=== PATIENT | male | born 2000 | race Caucasian/White ===

== ENCOUNTER 2023-10-06 21:33 | Emergency (ER) | payer BC, SELFPAY ==
--- NOTE | ~2023-10-06 | XR_ITS ---
XR shoulder LT min 2V 10/06/2023 21:46 INDICATION: Left shoulder pain PROCEDURE: 4 views left shoulder COMPARISON: No prior studies for comparison. FINDINGS: Fracture, dislocation or subluxation is not identified. The soft tissues appear within norm al limits. No foreign bodies are identified. IMPRESSION: 1: NO ACUTE BONE OR JOINT ABNORMALITY IDENTIFIED. Reviewed, dictated and finalized at location A.
[2023-10-06 21:36] VITALS: BP 122/73; PULSE 93; RESP 15; TEMP 37.2; O2SAT 100
--- NOTE | 2023-10-06 22:41 | ED.GENADULT ---
HPI - General Adult General Chief complaint: Extremity Injury, Upper Stated complaint: dislocated L shoulder Time Seen by Provider: 10/06/23 22:21 History of Present Illness HPI narrative: This is a 22-year-old male presenting ED with left shoulder pain. He was playing basketball when he jumped and someone pulled on his arm. He then felt his arm, place was unable to move it. EMS was called while he was walking to the ambulance he felt his shoulder go back into place. This time his only complaint is some tightness in his lateral deltoid. No numbness tingling or weakness to his extremities Related Data Allergies Allergy/AdvReac Type Severity Reaction Status Date / Time No Known Allergies Allergy Verified 10/06/23 22:18 Exam Narrative: APPEARANCE: No apparent distress. Head: atraumatic. EYES: EOMI, NOSE: Atraumatic NECK: Trachea midline RESPIRATORY: No increased rate of breathing CARDIOVASCULAR: RRR, ABDOMINAL: Non-distended MUSCULOSKELETAl: or focal exam of the left upper extremity revealed some tenderness in the lateral deltoid. No numbness in the lateral deltoid region. Bench Scientist strength, thumb and pinky opposition and wrist extension intact. Cap refill less than 2 seconds and pulses intact. NEURO: Alert. Moving 4/4 extremities SKIN:: Warm, dry. Normal color PSYCHIATRIC: Normal affect Course Vital Signs Vital signs: Vital Signs Temperature 98.9 F 10/06/23 21:36 Pulse Rate 93 10/06/23 21:36 Respiratory Rate 15 10/06/23 21:36 Blood Pressure 122/73 10/06/23 21:36 Pulse Oximetry 100 10/06/23 21:36 Oxygen Delivery Room Air 10/06/23 21:36 Temperature 98.9 F 10/06/23 21:36 Pulse Rate 93 10/06/23 21:36 Respiratory Rate 15 10/06/23 21:36 Blood Pressure 122/73 10/06/23 21:36 Pulse Oximetry 100 10/06/23 21:36 Oxygen Delivery Room Air 10/06/23 21:36 Medical Decision Making MDM Narrative Medical decision making narrative: -Course: 22-year-old male presenting a presumed shoulder dislocation w/ self-reduction. patient denied pain medications. X-ray unremarkable. patient refused all pain medications and prescriptions. Patient placed in a shoulder immobilizer and given Ortho follow-up -DDX includes but is not limited to: Shoulder dislocation muscle strain -Independent interpretation of studies: shoulder x-ray and -Shared decision making / Disposition:discharged. Vital Signs Vital Signs: Vital Signs Temperature 98.9 F 10/06/23 21:36 Pulse Rate 93 10/06/23 21:36 Respiratory Rate 15 10/06/23 21:36 Blood Pressure 122/73 10/06/23 21:36 Pulse Oximetry 100 10/06/23 21:36 Oxygen Delivery Room Air 10/06/23 21:36 Temperature 98.9 F 10/06/23 21:36 Pulse Rate 93 10/06/23 21:36 Respiratory Rate 15 10/06/23 21:36 Blood Pressure 122/73 10/06/23 21:36 Pulse Oximetry 100 10/06/23 21:36 Oxygen Delivery Room Air 10/06/23 21:36 Discharge Plan Discharge Clinical Impression: Dislocated shoulder Patient Disposition: Home, Self-Care Condition: Stable Instructions: Antibiotic Form, Shoulder Dislocation (ED) Additional Instructions: Please use Motrin and Tylenol for pain. Please follow-up with orthopedics before you resume using her left arm Follow-up/Referrals: UNKNOWN,DOCTOR [Primary Care Provider] - Chace Matos MD [Physician] - 1 Week (Dislocated shoulder)
== END 2023-10-06 22:50 | disposition home or self-care (01) ==
PROVIDERS: Emergency Provider Emergency Medicine
DX: S43.005A Unspecified dislocation of left shoulder joint, initial encounter (principal); X50.9XXA Other and unspecified overexertion or strenuous movements or postures, initial encounter; Y93.67 Activity, basketball
CPT/HCPCS: 73030; 99283